=== PATIENT | male | born 1965 | race Caucasian/White ===

== ENCOUNTER 2019-04-13 13:00 | Emergency (ER) | payer SELFPAY ==
[2019-04-13] MEDS ORDERED: Lidocaine 1% PF 5 ML VIAL ONE (14:24)
== END 2019-04-13 15:07 | disposition home or self-care (01) ==
LOC: ERS 13:00
DX: L03.011 Cellulitis of right finger (principal)
CPT/HCPCS: 10060; 87070; 87077; 87205; J2001

== ENCOUNTER 2023-12-23 19:47 | Emergency (ER) | payer SELFPAY ==
[2023-12-23 20:29] LABS: #Eosinphils 0.1 thou/uL (0.0-0.7); #Monocytes 0.7 thou/uL (0.11-0.59); #Neutrophils 5.8 thou/uL (1.40-6.50); %Basophils 0.4 % (0.0-1.0); %Eosinophils 1.2 % (0.0-10.0); %Lymphocytes 17.3 % (21.0-51.0); %Monocytes 8.4 % (0.0-10.0); %Neutrophils 72.2 % (42.0-75.0); Hematocrit 38.7 % (42.0-52.0); Hemoglobin 13.4 g/dL (14.0-18.0); Mean Corpuscular HGB CONC 34.6 g/dL (32.0-36.0); Mean Corpuscular Hemoglobin 31.8 pg (27.0-31.0); Mean Corpuscular Volume 91.9 fl (78.0-98.0); Mean Platelet Volume 9.4 fL (7.4-10.4); Platelet Count 276 10x3/uL (130-400); RBC Distribution Width 12.1 % (11.5-14.5); Red Blood Cell (RBC) Count 4.21 mill/uL (4.70-6.10); White Blood Cell (WBC) Count 8.1 10x3/uL (4.8-10.8)
[2023-12-23 20:44] LABS: ALT (SGPT) 11 U/L (8-55); AST (SGOT) 16 U/L (5-34); Alcohol Less than 10.0 mg/dL (Less than 10); Alkaline Phosphatase 94 U/L (40-110); Anion Gap 14 mmol/L (10-20); BUN (Urea Nitrogen) 21 mg/dL (8.4-25.7); Bilirubin, Total 0.5 mg/dL (0.2-1.2); Calc. Creatinine Clearance 0 mL/min (70-130); Calcium 8.9 mg/dL (7.8-10.44); Carbon Dioxide 23 mmol/L (22-29); Chloride 105 mmol/L (98-107); Estimated GFR 80; Globulin 2.6 g/dL (2.4-3.5); Glucose 137 mg/dL (70-105); Lipase 27 U/L (8-78); Potassium 3.7 mmol/L (3.5-5.1); Protein, Total 6.6 g/dL (6.0-8.3); Sodium 138 mmol/L (136-145)
[2023-12-23] MEDS ORDERED: Morphine 4 MG/ML VIAL ONE ×2 (20:52→21:55)
[2023-12-23 21:10] LABS: INR-International Normal Ratio 1.1
[2023-12-23 21:11] LABS: PTT 26.4 sec (22.9-36.1)
[2023-12-23 21:23] LABS: Bilirubin Negative (Negative); Blood, Urine Negative (Negative); Clarity Clear (Clear); Glucose, Urine (Dipstick) Normal (Negative); Ketone, Urine Negative (Negative); Leukocyte 75 Leu/uL (Negative); Mucous/LPF Rare LPF (<2+); Nitrite Negative (Negative); Protein, Urine (Dipstick) 20 mg/dL (Neg-Trace); RBC/HPF 0-3 HPF (0-3); Squamous Epithelial 0-3 HPF (0-3); Urobilinogen Normal mg/dL (Less than 2)
[2023-12-23 21:24] LABS: Bacteria/HPF Rare-Few HPF (None Seen); Specific Gravity, Urine 1.058 (1.002-1.036)
[2023-12-23] MEDS ORDERED: Ketorolac Tromethamine 30 MG (1 mL) VIAL ONE (23:31)
== END 2023-12-23 23:50 | disposition home or self-care (01) ==
LOC: ERS 19:47
DX: S42.102A Fracture of unspecified part of scapula, left shoulder, initial encounter for closed fracture (principal); S22.42XA Multiple fractures of ribs, left side, initial encounter for closed fracture; S01.01XA Laceration without foreign body of scalp, initial encounter; S90.512A Abrasion, left ankle, initial encounter; S50.312A Abrasion of left elbow, initial encounter; S40.212A Abrasion of left shoulder, initial encounter; S80.212A Abrasion, left knee, initial encounter; V63.5XXA Driver of heavy transport vehicle injured in collision with car, pick-up truck or van in traffic accident, initial encounter
CPT/HCPCS: 12002; 36415; 70450; 71045; 71260; 72125; 74177; 80053; 80307; 81001; 83690; 85025; 85610; 85730; 86850; 86900; 86901; 93005; 96374; 96375; 96376; J1885; J2270